=== PATIENT | male | born 1995 | race Caucasian/White ===

== ENCOUNTER 2019-07-21 10:27 | Emergency (ER) | payer MEDICAID, OTHER ==
[~2019-07-21] VITALS: Ht 165.1 cm; Wt 54.4 kg
--- NOTE | 2019-07-21 10:29 | NUR ---
Patient taken to bed 5
[2019-07-21 10:32] VITALS: BP 144/97
[2019-07-21] MEDS ORDERED: ALBUTEROL SULFATE/IPRATROPIU 3 ML SOL IH ONE (10:35)
--- NOTE | 2019-07-21 10:35 | NUR ---
23 Y/O M C/C SOB X THIS AM. PER PT USED INHALER TWICE WITH NO RELIEF AT 0830 HOURS. PT ASYMPTOMATIC; LUNG SOUNDS CLEAR; SPO2 100% RA. PT NKA. HX ASTHMA. RX ALBUTEROL PRN. NO N/V/D. SIDE RAIL X1.
--- NOTE | 2019-07-21 10:38 | NUR ---
RT AT BEDSIDE
[2019-07-21 11:01] VITALS: BP 144/97
--- NOTE | 2019-07-21 11:01 | NUR ---
Patient discharged with v/s stable. Written and verbal after care instructions given and explained. Patient alert, oriented and verbalized understanding of instructions. Ambulatory with steady gait. All questions addressed prior to discharge. ID band removed. Patient advised to follow up with PMD. Rx of PREDNISONE,ALBUTEROL given. Patient educated on indication of medication including possible reaction and side effects. Opportunity to ask questions provided and answered.
== END 2019-07-21 11:01 | disposition home or self-care (01) ==
LOC: MED 10:27
DX: R06.02 Shortness of breath (principal); R06.2 Wheezing; J45.909 Unspecified asthma, uncomplicated
CPT/HCPCS: 94640; 99283; J7620

== ENCOUNTER 2019-08-12 10:25 | Emergency (ER) | payer MEDICAID ==
--- NOTE | 2019-08-12 10:25 | NUR ---
PT TO ER BED 3
--- NOTE | 2019-08-12 10:36 | NUR ---
23/M BIB SELF C/O COUGH AND SOB X 2 DAYS. SYMPTOMS WORSE AT NIGHT. WITH RUNNY NOSE. DENIES N/V/D/FEVER. HX ASTHMA ON RX PROAIR, VENTOLIN. WHEEZING IN ALL LUNG LOVE. PLACED ON BEDSIDE MONITOR. 98% RA, HR 107, RR 20. NO RESPIRATORY DISTRESS. SPEAKING IN FULL CLEAR SENTENCES. USED INHALER IN THE AM TODAY. DENIES PAIN. REPEAT BP OF 136/89.
--- NOTE | 2019-08-12 10:40 | NUR ---
DR. SAAB EVALUATING PT AT BEDSIDE.
[2019-08-12] MEDS ORDERED: predniSONE 20 MG TAB ONE (10:52)
--- NOTE | 2019-08-12 10:55 | NUR ---
PREDNISONE 40 MG PO ADMINISTERED. SEE DOWNTIME CHARTING.
[2019-08-12] MEDS ORDERED: ALBUTEROL 0.083% 2.5 MG/3 ML NEBU INH ONE ×2 (10:56→11:30)
[2019-08-12] MEDS ORDERED: IPRATROPIUM 0.02% 0.5 MG/2.5 ML NEBU INH ONE ×2 (10:56→11:30)
--- NOTE | 2019-08-12 10:58 | NUR ---
RT AT BEDSIDE FOR RESPIRATORY INTERVENTION.
[2019-08-12] MEDS ORDERED: predniSONE 20 MG TAB PO ONE (11:30)
--- NOTE | 2019-08-12 11:50 | NUR ---
Patient discharged with v/s stable. Written and verbal after care instructions given and explained. Patient alert, oriented and verbalized understanding of instructions. Ambulatory with steady gait. All questions addressed prior to discharge. ID band removed. Patient advised to follow up with PMD. Rx of ALBUTEROL SOLUTION AND PREDNISONE given. Patient educated on indication of medication including possible reaction and side effects. Opportunity to ask questions provided and answered.
[2019-08-12 11:52] VITALS: BP 132/83
== END 2019-08-12 11:50 | disposition home or self-care (01) ==
LOC: MED 10:25
DX: J45.901 Unspecified asthma with (acute) exacerbation (principal); F12.10 Cannabis abuse, uncomplicated
CPT/HCPCS: 94640; 99283; J7512; J7613; J7644